=== PATIENT | female | born 1970 | race Caucasian/White ===

== ENCOUNTER 2019-05-18 11:01 | Outpatient (CLI) | payer OTHER, SELFPAY ==
--- NOTE | ~2019-05-18 | CT_ITS ---
EXAMINATION: CT abdomen pelvis w con INDICATION: Intermittent left lower quadrant pain TECHNIQUE: Computed tomographic images of the abdomen and pelvis were obtained after the administrati on of 100 cc of Omnipaque 350 intravenous contrast. The dose-length product (DLP) was 573.09 mGy-cm. Automated exposure control and iterative reconstruction technique were employed. COMPARISON: None available FINDINGS: The lung bases are clear. The heart size is normal. The gallbladder is surgically absent. T here is mild enlargement of the common bile duct and central intrahepatic ducts which is likely due t o post cholecystectomy state. Punctate calcifications in an otherwise normal spleen likely represent healed granulomatous disease. The liver, pancreas, and adrenal glands are normal. The kidneys are unr emarkable. No pathologically enlarged abdominal or pelvic lymph nodes are identified. There is no maggi e intraperitoneal gas or evidence of bowel obstruction. A moderate volume of colonic stool is present . The appendix is normal. There is a fat-containing umbilical hernia. There is mild lumbar spondylosi s. IMPRESSION: 1. No CT correlate for the patient's symptoms. Reviewed, dictated and finalized at location A. [facility]ICKER
[2019-05-18 14:24] LABS: Blood Urea Nitrogen 18 mg/dL (8-26); Estimated Glomerular Filt Rate > 60
[2019-05-18 15:19] LABS: Alanine Aminotransferase 23 U/L (4-35); Albumin Level 4.4 g/dL (3.5-5.1); Alkaline Phosphatase 78 U/L (38-126); Aspartate Amino Transferase 27 U/L (14-36); Bilirubin,Total 0.4 mg/dL (0.2-1.3); Blood Urea Nitrogen 17 mg/dL (7-17); Calcium 9.7 mg/dL (8.4-10.2); Carbon Dioxide 26 mmol/L (22-30); Chloride 100 mmol/L (98-107); Cholesterol 313 mg/dL (0-200); Estimated Glomerular Filt Rate > 60; Glucose 97 mg/dL (65-105); Potassium 4.4 mmol/L (3.4-5.0); Sodium 136 mmol/L (137-145)
[2019-05-18 15:22] LABS: LDL Cholesterol Direct 138 mg/dL
[2019-05-18 15:32] LABS: Triglycerides 650 mg/dL (<150)
== END 2019-05-18 13:52 | disposition home or self-care (01) ==
LOC: ANHIMG 08-20 11:01
PROVIDERS: PCP Emergency Medicine
DX: E78.5 Hyperlipidemia, unspecified (principal); M47.816 Spondylosis without myelopathy or radiculopathy, lumbar region; G62.9 Polyneuropathy, unspecified; Z79.891 Long term (current) use of opiate analgesic; J44.9 Chronic obstructive pulmonary disease, unspecified
CPT/HCPCS: 36415; 74177; 80053; 80061; Q9967

== ENCOUNTER 2021-04-24 16:39 | Emergency (ER) | payer OTHER, SELFPAY ==
--- NOTE | ~2021-04-24 | CT_ITS ---
EXAMINATION: CT chest abdomen pelvis w con EXAM DATE: 04/24/2021 19:42 INDICATION: LUQ/left chest wall pain . Fell 2 days ago. TECHNIQUE: Spiral CT of the chest, abdomen and pelvis was performed following intravenous injection o f 100 mL Omnipaque 350. Axial, coronal and sagittal images chest, abdomen and pelvis were reviewed. Coronal maximum intensity pixel images of chest reviewed. The dose-length product (DLP) for this ex amination was 393.10 mGy-cm. The exposure was tailored according to patient size (auto mA exposure c ontrol), and iterative reconstruction (ASIR) was used as additional dose reduction technique. Compari son is made to prior examination from 05/18/2019. FINDINGS: CHEST: Segmental lingular, subsegmental left lower lobe atelectasis. Small mildly proteinaceous lef t pleural effusion, probably hemothorax given the acute left 10th rib fracture posteriorly with mild displacement. Tracheobronchial tree is patent. There is no mediastinal, hilar or axillary lymphade nopathy. There is no pneumothorax. Heart normal in size. There is mild coronary arterial calcif ication, arterial sclerosis. ABDOMEN PELVIS: The liver, spleen, adrenal glands and pancreas are unremarkable. Gallbladder not elena ntified, patient likely has had cholecystectomy. Portal and splenic veins are patent. Kidneys enhan ce symmetrically. There is no hydronephrosis. The uterus is unremarkable. The bladder is unremar kable. There is no retroperitoneal or pelvic lymphadenopathy. There is mild scattered arterioscler otic disease. The appendix is normal. The stomach and small bowel are unremarkable. There is expected amount of c olonic stool. No free intraperitoneal gas. There are no osteoblastic or osteolytic lesions identi fied. IMPRESSION: 1. Acute left 10th rib fracture, small left hemothorax and adjacent atelectasis. 2. No acute intra-abdominal findings. Reviewed, dictated and finalized at location G. PATIONAL PSYCHOLOGIST IMPRESSION: 1. Acute left 10th rib fracture, small left hemothorax and adjacent atelectasi s. 2. No acute intra-abdominal findings.
[2021-04-24 17:19] VITALS: BP 135/107; PULSE 100; RESP 18; TEMP 37.4; O2SAT 97
[2021-04-24 18:09] LABS: Basophils Percent Auto 0.3 % (0.2-1.2); Eosinophils Absolute Auto 0.1 K/mm3 (0-0.3); Eosinophils Percent Auto 0.9 % (0-4.4); Hematocrit 36.5 % (37.0-47.0); Hemoglobin 12.6 g/dL (12.0-15.0); Immature Granulocyte Absolute 0.02 K/mm3 (0.00-0.031); Immature Granulocyte Percent A 0.3 % (0-0.5); Lymphocytes Absolute Auto 2.28 K/mm3 (0.9-3.2); Lymphocytes Percent Auto 29.9 % (18.3-44.2); Mean Corpuscular HGB Conc 34.5 g/dl (32-36); Mean Corpuscular Hemoglobin 31.6 pg (26-34); Mean Corpuscular Volume 91.5 fl (80-100); Mean Platelet Volume 9.3 fl (7.4-10.4); Monocytes Absolute Auto 0.5 K/mm3 (0.1-0.6); Monocytes Percent Auto 6.3 % (2.6-8.5); Neutrophils Absolute Auto 4.8 K/mm3 (1.3-6.7); Neutrophils Percent Auto 62.3 % (45.5-73.1); Platelet Count Result 175 k/mm3 (150-375); Red Blood Count 3.99 M/mm3 (4.2-5.4); Red Cell Distribution Width 12.5 % (11.5-14.5); White Blood Count 7.6 K/mm3 (4.5-10.0)
[2021-04-24 18:20] LABS: Alanine Aminotransferase 19 U/L (4-35); Albumin Level 4.4 g/dL (3.5-5.1); Alkaline Phosphatase 100 U/L (38-126); Anion Gap 7 mmol/L (8-16); Aspartate Amino Transferase 38 U/L (14-36); Bilirubin,Total 0.7 mg/dL (0.2-1.3); Blood Urea Nitrogen 14 mg/dL (7-17); Calcium 9.6 mg/dL (8.4-10.2); Carbon Dioxide 24 mmol/L (22-30); Chloride 103 mmol/L (98-107); Estimated CRCL calculation 94 ml/min; Estimated Glomerular Filt Rate > 60; Glucose 108 mg/dL (65-110); Potassium 3.7 mmol/L (3.4-5.0); Sodium 134 mmol/L (137-145)
[2021-04-24] MEDS: MORPHINE SULFATE (*CRX) 4 MG/ML INJ IV PUSH (18:22)
[2021-04-24 18:24] VITALS: RESP 22
[2021-04-24] MEDS: fentaNYL CITRATE INJ (*CRX) 100 MCG/2 ML VIAL 50 MCG IV PUSH (19:17)
[2021-04-24 19:19] VITALS: BP 148/88; PULSE 78; RESP 24; O2SAT 100
[2021-04-24 20:32] VITALS: BP 149/82; PULSE 91; RESP 22; O2SAT 97
[2021-04-24] MEDS: KETOROLAC 30 MG/ML VIAL (*BKC) IV PUSH (20:52)
--- NOTE | 2021-04-24 20:56 | PC.NURSE ---
pt states she is safe at home and states she was injured by trying to crawl in through a window. Pt states she locked herself out of home and squeezed in a window. Pt aware that we will attempt to admit
--- NOTE | 2021-04-24 21:07 | ED.SOB ---
HPI - SOB/Dyspnea General Chief Complaint: Shortness of Breath/Dyspnea Stated Complaint: SOB Time Seen by Provider: 04/24/21 17:38 History of Present Illness HPI Narrative: Patient is a 50-year-old female who presents ER with left-sided chest pain. Patient reports she was crawling through a window to the home because she had lost the keys 2 days ago. She struck her chest wall on the side of the window and began having pain. She was evaluated at [facility] and diagnosed with a rib fracture. Since then she has had worsening pain and has trouble taking deep breaths due to the discomfort. No fevers or chills or sweats. No cough. She has been taking ibuprofen without improvement of the discomfort. Related Data Home Medications Medication Instructions Recorded Confirmed sertraline 50 mg tablet 50 mg PO DAILY 05/07/19 Allergies Allergy/AdvReac Type Severity Reaction Status Date / Time No Known Allergies Allergy Unverified 12/12/17 12:27 Review of Systems Review of Systems: All systems reviewed & are unremarkable except as noted in HPI and below Constitutional: Constitutional: Denies chills, Denies fever(s) and Denies weakness ENT: Denies nasal congestion and Denies sore throat Cardiovascular: Cardiovascular: Reports chest pain, Denies rapid heart rate and Denies radiating jaw, neck or arm pain Respiratory: Respiratory: Denies cough, Reports dyspnea and Denies wheezing Gastrointestinal: Gastrointestinal: Reports abdominal pain, Denies diarrhea, Denies nausea and Denies vomiting Neurologic: Denies syncope, Denies focal weakness and Denies numbness PMFSH Past Medical History Medical History (Updated 04/24/21 @ 21:12 by Elio Johnson MD) Acute recurrent frontal sinusitis Acute right-sided low back pain without sciatica Body mass index [BMI] 27.0-27.9, adult (09/01/17) Body mass index [BMI] 28.0-28.9, adult (05/05/17) Body mass index [BMI] 29.0-29.9, adult (01/02/17) Bronchitis Cervical spinal stenosis COPD (chronic obstructive pulmonary disease) Depression Fatigue GERD without esophagitis HLD (hyperlipidemia) Hyperglycemia Hypertension Keratotic lesion Moderate single current episode of major depressive disorder Neck pain Night sweats Nose septum deviation Pain of right hip joint Tobacco abuse Vitamin D deficiency Family History Family History Mother Acute myocardial infarction Social History Social History Smoking status: Current every day smoker Exam Narrative: GENERAL: Uncomfortable/anxious-appearing, well-nourished, and in no acute distress. Poor eye contact. HEAD: Normocephalic, atraumatic. EYES: PERRL and EOMI. ENT: Mucous membranes moist. CHEST: Clear to auscultation. No respiratory distress. Tender palpation left lateral chest wall. HEART: Regular rate and rhythm. Normal peripheral pulses. ABDOMEN: Soft, tender palpation left upper quadrant with guarding,nondistended. No bruising to abdomen. EXTREMITIES: Normal range of motion. No edema. SKIN: Warm, dry, no rash. Scattered old bruising to arms NEURO: Alert and oriented x3. PSYCH: Normal mood and affect. Course Reevaluation(s) Reevaluation #1: You have had a very candid discussion with the patient. She denies that she has been abused or assaulted. She reports she does feel safe at home though she is currently living across the street outside of her home as her and her are . He was not home when she tried to prop open the window and get inside the house. Patient still having very significant splinting and pleuritic pain despite morphine and fentanyl. Will try Toradol. Discussed imaging with Dr. Liang who is reviewed the images. Reports that there would be no intervention needed. Date: 04/24/21 Time: 21:07 Vital Signs Vital signs: Vital Signs Temperature 99.3 F 04/24/21 17:19 Puls
--- NOTE | 2021-04-24 22:00 | PC.NURSE ---
Pt made aware that she is going to be discharged . RT completed incentive spirometry training. Pt understands instructions and is attempting to find a ride home.
[2021-04-24 22:01] VITALS: BP 124/82; PULSE 78; RESP 18; O2SAT 97
== END 2021-04-24 22:02 | disposition home or self-care (01) ==
PROVIDERS: Emergency Provider Emergency Medicine; PCP Emergency Medicine
DX: S22.39XA Fracture of one rib, unspecified side, initial encounter for closed fracture (principal); S27.1XXA Traumatic hemothorax, initial encounter; J44.9 Chronic obstructive pulmonary disease, unspecified; F32.9 Major depressive disorder, single episode, unspecified; K21.9 Gastro-esophageal reflux disease without esophagitis; I10 Essential (primary) hypertension; F17.210 Nicotine dependence, cigarettes, uncomplicated; W22.09XA Striking against other stationary object, initial encounter
CPT/HCPCS: 36415; 71260; 74177; 80053; 81025; 85025; 96374; 96375; 99284; A9270; J1885; J2270; J3010; Q9967

== ENCOUNTER → 2021-06-22 02:39 | Outpatient (CLI) | payer OTHER, SELFPAY ==
[2021-06-22 11:27] LABS: SARS-CoV-2 RNA PCR Negative
== END ==
PROVIDERS: PCP Emergency Medicine; Visit Provider Internal Medicine Gastroenterology
DX: Z01.812 Encounter for preprocedural laboratory examination (principal); Z20.822 Contact with and (suspected) exposure to COVID-19
CPT/HCPCS: C9803; U0003; U0005

== ENCOUNTER 2021-06-25 02:29 | Day surgery (SDC) | payer OTHER, SELFPAY ==
[2021-06-13 13:36] VITALS: BMI 22.3
[2021-06-25 07:34] VITALS: BP 128/88; PULSE 87; RESP 16; TEMP 36.2; O2SAT 97
[2021-06-25] MEDS: LACTATED RINGERS 1,000 ML 150 ML IV CONT (07:42)
--- NOTE | 2021-06-25 07:45 | WPDANESEPPF ---
Anes - Initial Pre Proc Eval Procedure: Operation Date: 06/25/21 08:30 Proposed Procedures p Esophagogastroduodenoscopy - Neo Camarena MD Date/Time: 06/25/21 07:45 Surgeon: Neo Camarena MD Pre Op Diagnosis: epigastric pain Patient Data Age: 50 Gender: F Height: 1.65 m Weight: 61.7 kg Last Vital Signs Temp 97.1 F L 06/25/21 07:34 Pulse 87 06/25/21 07:34 Resp 16 06/25/21 07:34 BP 128/88 06/25/21 07:34 Pulse Ox 97 06/25/21 07:34 Allergies Allergy/AdvReac Type Severity Reaction Status Date / Time No Known Allergies Allergy Verified 06/25/21 07:33 Home Medications Medication Instructions Recorded Confirmed Type sertraline 50 mg tablet 50 mg PO DAILY 05/07/19 06/25/21 History omeprazole 20 mg capsule,delayed See Rx Instructions .ROUTE 11/13/20 06/25/21 Rx release .COMPLEX #180 cap albuterol sulfate 90 mcg/actuation 2 puff INHALATION Q4-6H PRN #18 gm 05/21/21 06/25/21 Rx aerosol inhaler budesonide-formoterol HFA 160 See Rx Instructions .ROUTE 05/21/21 06/25/21 Rx mcg-4.5 mcg/actuation aerosol .COMPLEX #11 gm inhaler fluticasone propionate 50 1 - 2 spray NASAL DAILY #15.8 ml 05/21/21 06/25/21 Rx mcg/actuation nasal spray,suspension naproxen 500 mg tablet See Rx Instructions .ROUTE 05/30/21 06/25/21 Rx .COMPLEX #20 tablet dicyclomine 10 mg capsule 10 mg PO QID 06/06/21 06/25/21 History Patient hx anesthesia problems: none Family hx anesthesia problems: none Results Review: All pre-operative results and documents have been reviewed as part of the pre-operative evaluation. [facility] Past Medical History Medical History (Updated 06/06/21 @ 15:52 by Lynette Hill, WEIGHT TESTER-C) Acute recurrent frontal sinusitis Acute right-sided low back pain without sciatica Body mass index [BMI] 27.0-27.9, adult (09/01/17) Body mass index [BMI] 28.0-28.9, adult (05/05/17) Body mass index [BMI] 29.0-29.9, adult (01/02/17) Bronchitis Cervical spinal stenosis COPD (chronic obstructive pulmonary disease) Depression Fatigue GERD without esophagitis HLD (hyperlipidemia) Hyperglycemia Hypertension Keratotic lesion Moderate single current episode of major depressive disorder Neck pain Night sweats Nose septum deviation Pain of right hip joint Tobacco abuse Vitamin D deficiency Family History Family History Mother Acute myocardial infarction Social History Social History (Updated 06/06/21 @ 14:21 by Kathy Garcia MA) Smoking packs per day: 1 Smoking cigarettes per day: 20.0 Years smoked: 35 Smoking pack-years: 35.00 Smoking status: Current every day smoker Tobacco type: cigarettes Alcohol intake: never Substance use: current Substance use type: marijuana Other substance usage details: occasional Living arrangements: alone Gender identity (if verbalized by the patient): Female Spiritual care concerns: No Anes - Eval Final PreProcedure Day of Procedure 06/25/21 07:45 Patient weight: normal Heart: regular rate and rhythm Lungs: clear to auscultation Airway: Mallampati scale class II Neurological: alert and oriented Last oral intake: >/= 8 hours ASA classification: III Emergent: no Anesthetic plan: proceed Anesthesia type and monitoring: general GIVS and standard monitoring Results Review: All pre-operative results and documents have been reviewed as part of the pre-operative evaluation. Informed Consent: The patient's anesthetic plan and its attendant risks and benefits were discussed with the patient/family/POA. Questions were solicited and answers provided to the satisfaction of the patient/family/POA.
--- NOTE | 2021-06-25 07:54 | WPDHPUPDATE1 ---
History and Physical Update Update Date/Time: 06/25/21 07:54 History and Physical has been reviewed, including an updated exam of the patient. There are NO changes in the patient's condition. Risks, benefits, and alternatives have been discussed and questions answered. Patient agrees to proceed with procedure.
[2021-06-25 08:08] VITALS: BP 110/75; PULSE 80; RESP 20; O2SAT 99
[2021-06-25 08:18] VITALS: BP 122/87; PULSE 68; RESP 18; O2SAT 99
[2021-06-25 08:28] VITALS: BP 119/85; PULSE 64; RESP 20; O2SAT 98
== END 2021-06-25 08:45 | disposition home or self-care (01) ==
PROVIDERS: PCP Emergency Medicine; Visit Provider Internal Medicine Gastroenterology
PROC: 0DJ08ZZ Inspection of Upper Intestinal Tract, Via Natural or Artificial Opening Endoscopic (ICD-10-PCS; CPT 43235; principal; 2021-06-25 08:30)
DX: K29.50 Unspecified chronic gastritis without bleeding (principal); K31.84 Gastroparesis; R19.7 Diarrhea, unspecified; K21.9 Gastro-esophageal reflux disease without esophagitis; J44.9 Chronic obstructive pulmonary disease, unspecified; I10 Essential (primary) hypertension; E78.5 Hyperlipidemia, unspecified; E55.9 Vitamin D deficiency, unspecified; F32.9 Major depressive disorder, single episode, unspecified; Z79.51 Long term (current) use of inhaled steroids; F17.210 Nicotine dependence, cigarettes, uncomplicated; F12.90 Cannabis use, unspecified, uncomplicated
CPT/HCPCS: 43239; 88305; J2704; J7120